=== PATIENT | female | born 1965 | race Caucasian/White ===

== ENCOUNTER → 2017-11-22 | Outpatient (CLI) | payer BC, OTHER ==
[~2017-11-22] MED LIST: FERR-84 PO; HYDR-757 PO; IBUP-1773 PO; LEVO125T6; LISI5TAB14; NITR-65 PO; PHEN200T27 PO; PROP20TA5 PO
--- NOTE | 2017-11-22 12:38 | Diagnostic Imaging Report ---
PROCEDURE: US Non-ob pelvis comp/trans. TECHNIQUE: Multiple realtime grayscale images were obtained of the pelvis in various projections endovaginally. Transabdominal imaging was also performed. INDICATION: Left-sided pelvic pain. CORRELATION is made with prior ultrasound from 05/12/2015. FINDINGS: The uterus measures 9.0 x 5.6 x 4.7 cm. The endometrium is 8 mm in thickness. The uterus is heterogeneous. There is an area of mixed echogenicity in the right uterus measuring approximately 15 mm in size. An area of mixed echogenicity in the left uterus measures approximately 14 mm. These could represent fibroids. Ovaries were not visualized. There is no adnexal mass or free fluid. IMPRESSION: Uterine myometrial heterogeneity, as described. There may be 2 small fibroids present. No other significant abnormality is seen. Dictated by: Dictated on workstation # [id number]
== END ==
LOC: RAD 11-19 08:44
PROVIDERS: ATTEND Nurse Practitioner Primary Care
DX: R10.2 Pelvic and perineal pain (principal)
CPT/HCPCS: 76830; 76856

== ENCOUNTER → 2018-11-15 | Outpatient (CLI) | payer OTHER ==
[~2018-11-15] MED LIST changes: +HYDR-4226 PO; -HYDR-757 PO
--- NOTE | 2018-11-15 19:36 | Diagnostic Imaging Report ---
INDICATION: Left breast pain laterally. CORRELATION is made with prior mammogram from 01/21/2016 and 12/23/2014. TECHNIQUE: 2D and 3D bilateral diagnostic mammography was performed with CAD. FINDINGS: Both breasts remain heterogeneously dense, limiting the sensitivity of mammography. The parenchymal pattern is stable. No mass or malignant appearing microcalcifications are seen. The axillae are unremarkable. IMPRESSION: BI-RADS Category 0 No mammographic features suspicious for malignancy are identified. Even so, sonographic interrogation of the area of pain in the lateral left breast is recommended and will be performed today. ACR BI-RADS Category 0: Incomplete. (Needs additional imaging evaluation). Result letter will be mailed to the patient. Note: At least 10% of breast cancer is not imaged by mammography. Dictated by: Dictated on workstation # [id number]
--- NOTE | 2018-11-15 19:37 | Diagnostic Imaging Report ---
INDICATION: Pain lateral left breast. FINDINGS: Sonographic interrogation of the lateral left breast was performed at the area of pain. No sonographic abnormality is seen. No solid or cystic mass is detected. IMPRESSION: BI-RADS Category 1. No sonographic abnormality is seen. The patient may return to routine screening mammography. ACR BI-RADS Category 1: Negative. Result letter will be mailed to the patient. Note: At least 10% of breast cancer is not imaged by mammography. Dictated by: Dictated on workstation # [id number]
== END ==
LOC: RAD 14:03
PROVIDERS: ATTEND Nurse Practitioner Family
DX: N64.4 Mastodynia (principal)
CPT/HCPCS: 76642; 77066

== ENCOUNTER → 2019-06-19 | Outpatient (CLI) | payer OTHER | LOC: CARD 08:36 | PROVIDERS: ATTEND Internal Medicine Cardiovascular Disease | DX: I10 Essential (primary) hypertension (principal); E66.01 Morbid (severe) obesity due to excess calories; R07.89 Other chest pain; R06.02 Shortness of breath | CPT/HCPCS: 93306 ==

== ENCOUNTER → 2020-08-16 | Outpatient (CLI) | payer OTHER ==
--- NOTE | 2020-08-16 11:53 | Diagnostic Imaging Report ---
INDICATION: Routine screening. Comparison is made with prior mammogram from 11/15/2018 and 01/21/2016. 2-D and 3-D bilateral screening mammography was performed with CAD. Both breasts are heterogeneously dense, limiting the sensitivity of mammography. The parenchymal pattern is stable. No mass or malignant appearing microcalcifications are seen. There are benign calcifications. Axillae are unremarkable. IMPRESSION: BI-RADS Category 2 No mammographic features suspicious for malignancy are identified. ACR BI-RADS Category 2: Benign findings. Result letter will be mailed to the patient. Note: At least 10% of breast cancer is not imaged by mammography. Dictated by: Dictated on workstation # [id number]
== END ==
LOC: RAD 09:49
PROVIDERS: ATTEND Nurse Practitioner
DX: Z12.31 Encounter for screening mammogram for malignant neoplasm of breast (principal)
CPT/HCPCS: 77063; 77067